=== PATIENT | male | born 2000 | race Asian ===

== ENCOUNTER 2023-01-23 20:19 | Emergency (ER) | payer OTHER, SELFPAY ==
--- NOTE | ~2023-01-23 | XR_ITS ---
EXAM: XR knee RT 3V DATE: 01/23/2023 21:03 HISTORY: Knee injury, LIMITED ROM, UNABLE TO STRAIGHTEN LEG . COMPARISON: None available. FINDINGS: Normal mineralization. No fracture or dislocation. No lytic or blastic lesion. Joint space s are maintained. No erosion or periosteal change. Soft tissues within normal limits. IMPRESSION: No acute osseous finding in the right knee. Reviewed, dictated and finalized at location [facility]. [employer]
[2023-01-23 20:31] VITALS: BP 120/65; PULSE 87; RESP 17; TEMP 36.7; O2SAT 100
[2023-01-23 22:23] VITALS: BP 127/68; PULSE 80; RESP 16; TEMP 36.4; O2SAT 100
--- NOTE | 2023-01-23 23:55 | ED.LOWEXIN ---
HPI - Extremity Injury (Lower) General Chief Complaint: Extremity Injury, Lower Stated Complaint: Right knee injury Time Seen by Provider: 01/23/23 23:17 Source: patient Mode of arrival: wheelchair Limitations: no limitations History of Present Illness HPI Narrative: This is a 22-year-old male that presents to the emergency department for right knee pain after an injury sustained this afternoon. Reports he was playing soccer and hyperextended his knee. Reports since he has had swelling and pain in the knee. Worse with range of motion. Reports he is unable to bear weight. Denies numbness. Review of Systems Review of Systems: CONSTITUTIONAL: Denies fever MUSCULOSKELETAL: Reports joint pain, and myalgia. NEUROLOGIC: Denies numbness All systems reviewed & are unremarkable except as noted in HPI and below PMFSH Past Medical History Medical History (Updated 01/23/23 @ 23:59 by Kyara Rai PA-C) No active medical problems Social History Social History (Updated 01/23/23 @ 23:56 by Kyara Rai PA-C) Substance use: never Exam Narrative: GENERAL: Well-appearing, well-nourished, and in no acute distress. HEAD: Normocephalic, atraumatic. EYES: EOMI. EXTREMITIES: Decreased active ROM in the right knee due to pain. No edema or obvious deformity. Normal DP pulse. Normal sensation. Normal straight leg raise SKIN: Warm, dry, no rash. NEURO: No focal deficits. Alert and oriented x3. PSYCH: Normal mood and affect Course Course Emergency Course: Patient updated on work-up and agrees with plan of care Vital Signs Vital signs: Vital Signs Temperature 98.1 F 01/23/23 20:31 Pulse Rate 87 01/23/23 20:31 Respiratory Rate 17 01/23/23 20:31 Blood Pressure 120/65 01/23/23 20:31 Pulse Oximetry 100 01/23/23 20:31 Temperature 97.6 F 01/23/23 22:23 Pulse Rate 80 01/23/23 22:23 Respiratory Rate 16 01/23/23 22:23 Blood Pressure 127/68 01/23/23 22:23 Pulse Oximetry 100 01/23/23 22:23 Procedures Orthopedic Splinting/Casting Injury #1: Splinting/Casting Date: 01/23/23 Splinting/Casting Time: 23:57 Side: right Lower Extremity Injury Location: knee Lower Extremity Immobilizer: Jose wrap Pre-Procedure Neuro Vascular Exam: normal Post-Procedure Neuro Vascular Exam: normal Other Orthopedic Equipment: crutches MDM - Extremity Injury (Lower) MDM Narrative Medical decision making narrative: Patient presents to the emergency department for right knee pain after an injury sustained playing soccer today. He is neurovascularly intact. Right knee x-rays without acute osseous abnormalities. Patient placed in an Jose wrap and given crutches. Instructed on further care of knee sprain. He is to follow-up with orthopedics. He was given warnings to return to the ER Differential Diagnosis Differential diagnosis: Likely acute internal derangement of knee Imaging Data Radiologist's impression: ITS Impressions Knee X-Ray 01/23/23 21:08 IMPRESSION: No acute osseous finding in the right knee. Critical Care Time Critical Care Time Critical Care Time: No Discharge Plan Discharge Clinical Impression: Acute internal derangement of knee Qualifiers: Laterality: right Qualified Code(s): M23.91 - Unspecified internal derangement of right knee Patient Disposition: Home, Self-Care Condition: Stable Instructions: Knee Sprain (ED) Additional Instructions: Return to the ER if you experience fever, redness and swelling of your extremity, numbness or any other symptoms that are concerning to you Wear JOSE wrap and use crutches. No weight on the affected leg. Ice and elevate extremity. Pain medication as needed and directed. Follow up with orthopedics for further care. Follow-up/Referrals: Gil Elizondo MD [Physician] - UNKNOWN,DOCTOR [Primary Care Provider] -
[2023-01-24 00:44] VITALS: BP 130/78; PULSE 78; RESP 18; O2SAT 97
== END 2023-01-24 00:46 | disposition home or self-care (01) ==
LOC: ANHED 01-24 00:11
PROVIDERS: Emergency Provider Physician Assistant
DX: M23.91 Unspecified internal derangement of right knee (principal); S89.91XA Unspecified injury of right lower leg, initial encounter; X50.9XXA Other and unspecified overexertion or strenuous movements or postures, initial encounter; Y93.66 Activity, soccer
CPT/HCPCS: 73562; 99283

== ENCOUNTER 2023-01-30 22:21 | Emergency (ER) | payer OTHER, SELFPAY ==
[2023-01-30 22:30] VITALS: BP 106/70; PULSE 64; RESP 16; TEMP 36.8; O2SAT 100
--- NOTE | 2023-01-31 00:28 | PC.NURSE ---
No answer for vitals
== END 2023-01-31 00:20 | disposition left against medical advice (07) ==
LOC: ANHED 01-31 03:15
DX: M25.461 Effusion, right knee (principal)
CPT/HCPCS: 99199

== ENCOUNTER 2023-04-15 10:41 | Outpatient (CLI) | payer OTHER, SELFPAY ==
--- NOTE | ~2023-04-15 | MR_ITS ---
MRI of the right knee Clinical history: Medial meniscus tear Technique: Coronal proton density and proton density-weighted images, sagittal proton-density and T2 fat-sat images, and axial proton-density fat-saturated images were acquired. Findings: There is probable complete tear at the proximal to midportion of the ACL. Posterior cruciat e ligament is intact. Medial collateral ligament and the lateral collateral ligament complex are inta ct. Popliteus tendon is intact. There is peripheral flap/vertical tear of the posterior horn of the lateral meniscus. No medial menis randi tear seen. No focal high-grade chondral lesion identified. Bone marrow signals appear unremarkable. Extensor mechanism is intact. No significant joint effusion or Mello's cyst. Impression: Complete tear at the proximal to midportion of the ACL. Peripheral vertical tear of the posterior horn of the lateral meniscus. No medial meniscal tear identified. Reviewed, dictated and finalized at [facility]. MACHINE FEEDER Impression: Complete tear at the proximal to midportion of the ACL. Peripheral vertical tear of the posterior horn of the lateral meniscus. No medial meniscal tear identified.
== END 2023-04-15 10:42 | disposition home or self-care (01) ==
PROVIDERS: Visit Provider Orthopaedic Surgery
DX: S83.241A Other tear of medial meniscus, current injury, right knee, initial encounter (principal); S83.411A Sprain of medial collateral ligament of right knee, initial encounter
CPT/HCPCS: 73721